=== PATIENT | female | born 1975 | race Caucasian/White ===

== ENCOUNTER 2018-02-07 06:21 | Day surgery (SDC) | payer MEDICAID ==
[2018-01-28 09:54] VITALS: BMI 23.7
[2018-02-07] MEDS ORDERED: ceFAZolin 1 gm FROZEN Premix 2 GM/100 ML ML IVPB ONE (07:19)
[2018-02-07] MEDS ORDERED: Lidocaine/Epinephrine 1% 1:100000 10 ML IJ ONE (07:19)
[2018-02-07] MEDS ORDERED: Propofol 10 mg/ml Inj (20 ML) ONE (07:36)
[2018-02-07] MEDS: Bupivacaine HCl 0.25% PF (30 ml) Inj ONE ×2 (08:10→09:35)
[2018-02-07] MEDS ORDERED: Neostigmine Methylsulfate 3mg/3ml Syringe IV ONE (08:45)
--- NOTE | 2018-02-07 10:06 | PCM.SURG1 ---
Surgeon's Initial Post Op Note - Surgeon's Notes Surgeon: MD Mulugeta Siebel Architect: HEATHER [email or web address]. Natalia, Nurse Electronic Sales And Service Technician Pre-Operative Diagnosis: Umbilical hernia, diastasis recti Operative Findings: Umbilical hernia, diastasis recti Post-Operative Diagnosis: Umbilical hernia, diastasis recti Operation Performed: Robotic umbilical hernia repair, and robotic diastasis recti repair, TAP block Specimen/Specimens Removed: peritoneum Estimated Blood Loss: EBL {In ML}: 10 Date of Surgery/Procedure: 02/07/18 Time of Surgery/Procedure: 08:00
[2018-02-07] MEDS: HYDROmorphone 0.5 mg/0.5 ml ISec IVP PRN ×2 (10:53→11:20)
[2018-02-07 16:00] VITALS: BP 108/55; PULSE 84; RESP 15; TEMP 97.8; O2SAT 97
--- NOTE | 2018-02-07 21:39 | OP ---
PROCEDURE DATE: 02/07/2018 PREOPERATIVE DIAGNOSES: 1. Umbilical hernia. 2. Diastasis of recti. POSTOPERATIVE DIAGNOSES: 1. Umbilical hernia. 2. Diastasis of recti. PROCEDURES DONE: 1. Robotic umbilical hernia repair with a mesh. 2. Robotic diastasis of recti repaired with a mesh. 3. Bilateral TAP block placement. SURGEON: David Dalal MD ASSISTANTS: LORENZO Quarles; and Raza Reyez, PGY-2, resident. TYPE OF ANESTHESIA: General endotracheal tube anesthesia. EBL: Around 10 mL. DRAINS: None. PATHOLOGY: The umbilical hernial sac and preperitoneal fat from the diastasis was sent for the pathology. COMPLICATIONS: None. INTRAOPERATIVE FINDINGS: The patient had approximately 2 x 2 cm umbilical hernia containing preperitoneal fat, and the patient also had a 10 x 4 cm long diastasis of recti and both sides of the rectus muscles were mobilized and it was sutured in the midline to repair the diastasis. DESCRIPTION OF PROCEDURE: On intraoperative steps, this 42-year-old female who was diagnosed with umbilical hernia and the patient was also diagnosed with diastasis of recti, and the patient consented for the robotic umbilical hernia repair with a mesh with diastasis of recti repair. Brought to the OR, placed supine on the operating table. After induction of the general anesthesia, the abdomen was prepped and draped in the usual sterile fashion. The left upper quadrant incision was made using the Visiport technique. Peritoneal cavity was entered. Pneumo was created. Another two 8 mm port were placed in the left flank. Robot was brought in. Camera arm as well as arm 1 and arm 2 were docked. First, the umbilical hernial sac and content were dissected and then diastasis of the recti was marked, it was 10 x 4 cm in size and all the preperitoneal fat was dissected and it was send off the table for the pathology. The umbilical hernial defect was closed with #1 Prolene V-Loc suture, and the diastasis of recti was repaired with mobilizing the rectus muscles on the right side. Rectus muscles on the left side was sutured on the midline and after the proper diastasis of recti repair from the umbilical hernial site as well diastasis of recti repair site was repaired with mesh, 15 x 8 cm, and mesh was implanted. After proper implantation of the mesh, bilateral TAP block was given. After the TAP block, all the ports were taken out under vision. Pneumo was deflated. All the port sites was closed in 2 layers, the subcu with a 2-0 Vicryl and skin with a 4-0 Monocryl, and dry sterile dressing was applied. The patient tolerated the procedure well. Count of the instruments and gauze was correct. There was no apparent complication. The patient was extubated in the OR and sent to the postanesthesia care unit in stable condition. David Dalal MD
== END 2018-02-07 16:20 | disposition home or self-care (01) ==
LOC: C.SDS 06:21
PROVIDERS: ATTEND Surgery Surgical Critical Care
DX: K42.9 Umbilical hernia without obstruction or gangrene (principal); M62.08 Separation of muscle (nontraumatic), other site
CPT/HCPCS: 22999; 49652; 88302; C1781; J0690; J1170; J2405; J2704; J2710; J2765; J3010

== ENCOUNTER 2018-05-19 14:48 | Emergency (ER) | payer MEDICAID ==
[2018-05-19 14:48] VITALS: BMI 23.7
[2018-05-19 15:06] VITALS: RESP 18
--- NOTE | 2018-05-19 15:33 | C.PDOC ---
History Of Present Illness 42 year old female presents to the ED complaining of lower abdominal pain for the last 3 weeks status post umbilical hernia repair. Associated symptoms include constipation. She denies any fever, chills. nausea, vomiting, diarrhea, or any other symptoms. Last bowel movement was yesterday. Time Seen by Provider: 05/19/18 15:30 Chief Complaint (Nursing): Abdominal Pain History Per: Patient History/Exam Limitations: no limitations Onset/Duration Of Symptoms: Days (3 weeks) Current Symptoms Are (Timing): Still Present Location Of Pain/Discomfort: Suprapubic Associated Symptoms: Constipation. denies: Fever, Chills, Nausea, Vomiting, Diarrhea Past Medical History Reviewed: Historical Data, Nursing Documentation, Vital Signs Vital Signs: Last Vital Signs Temp 98.4 F 05/19/18 15:03 Pulse 92 H 05/19/18 15:03 Resp 18 05/19/18 15:03 BP 112/70 05/19/18 15:03 Pulse Ox 99 05/19/18 15:03 - Medical History PMH: Gall Bladder Disease Surgical History: Cholecystectomy - [facility] Procedures LOCAL EXCIS BREAST LES (03/19/15) Family History: States: No Known Family Hx - Social History Hx Alcohol Use: No Hx Substance Use: No - Immunization History Hx Tetanus Toxoid Vaccination: No Hx Influenza Vaccination: No Hx Pneumococcal Vaccination: No Review Of Systems Constitutional: Negative for: Fever, Chills Gastrointestinal: Positive for: Abdominal Pain (lower abdominal pain), Constipation. Negative for: Nausea, Vomiting, Diarrhea Physical Exam - Physical Exam Appears: Non-toxic Skin: Warm, Dry Head: Normacephalic Eye(s): bilateral: Normal Inspection Nose: Normal Oral Mucosa: Moist Neck: Normal ROM Chest: Symmetrical Cardiovascular: Rhythm Regular Respiratory: Normal Breath Sounds, No Rales, No Rhonchi, No Wheezing Gastrointestinal/Abdominal: Soft, No Guarding, No Rebound, Other (mild diffused discomfort to palpation ) Extremity: Normal ROM Neurological/Psych: Oriented x3, Normal Speech Gait: Steady ED Course And Treatment O2 Sat by Pulse Oximetry: 99 (RA) Pulse Ox Interpretation: Normal Medical Decision Making Medical Decision Making: Orders: - POC urine - XR obstructive series On reassessment, patient is afebrile and in no acute distress. XR of abdomen obs tructive series show significant amount of retained stool. [address] Dalal, who performed herniorrhaphy. Dr. Dalal agrees with course of treatment and will see patient on Wednesday for a follow up. [id number] Dawkins, Medicine. Dr. Dawkins agrees with course of treatment. Disposition Counseled Patient/Family Regarding: Studies Performed, Diagnosis, Need For Followup - Disposition Referrals: David Dalal MD [Staff Provider] - Disposition: HOME/ ROUTINE Disposition Time: 17:50 Condition: STABLE Additional Instructions: Siga con el cirujano el Prisca Instructions: Constipation, Adult (DC) Forms: Gen Discharge Inst Azerbaijani, [facility] (Azerbaijani) - POA Present On Arrival: None - Clinical Impression Clinical Impression: Constipation, Abdominal pain - Scribe Statement The provider has reviewed the documentation as recorded by the Scribsherman Wilkins All medical record entries made by the Scribe were at my direction and personally dictated by me. I have reviewed the chart and agree that the record accurately reflects my personal performance of the history, physical exam, medical decision making, and the department course for this patient. I have also personally directed, reviewed, and agree with the discharge instructions and disposition.
--- NOTE | 2018-05-19 17:59 | RAD ---
Date of service: 05/19/2018 PROCEDURE: Radiographs of the chest and abdomen (obstructive series) HISTORY: s/p surgery 3 weeks ago COMPARISON: Chest radiograph dated 01/28/2018; no prior abdominal imaging TECHNIQUE: AP radiograph of the chest, with upright and supine radiographs of the abdomen. FINDINGS: CHEST: Lungs: Clear. Cardiovascular: Normal size heart. No pulmonary vascular congestion. Pleura: No pleural fluid. No pneumothorax. Other findings: None. ABDOMEN AND PELVIS: Bowel: Unremarkable bowel gas pattern. No evidence of mechanical obstruction. Free air: None. Bones: Unremarkable. Other findings: Right upper quadrant surgical clips. IMPRESSION: Unremarkable radiographs of chest and abdomen. No evidence of mechanical bowel obstruction.
[2018-05-19 18:10] VITALS: BP 102/66; PULSE 73; TEMP 98.6; O2SAT 100
== END 2018-05-19 18:10 | disposition home or self-care (01) ==
LOC: C.ER 14:48
DX: K59.00 Constipation, unspecified (principal); R10.30 Lower abdominal pain, unspecified